=== PATIENT | male | born 1965 | race Caucasian/White ===

== ENCOUNTER 2022-08-17 04:08 | Inpatient (IN) | payer BC, SELFPAY ==
[2022-08-17] VITALS (21 sets, daily range): BP systolic 97–111; BP diastolic 71–79; PULSE 65–92; RESP 12–20; TEMP 36.7–38.4; O2SAT 95–100; BMI 25.5
--- NOTE | ~2022-08-17 | XR_ITS ---
EXAMINATION: XR chest 1V portable DATE: 08/17/2022 04:30 INDICATION: Chest pain. TECHNIQUE: A single frontal view of the chest was obtained. COMPARISON: None. FINDINGS: The chest demonstrates clear lungs without pneumonia, pleural effusion, or pneumothorax. Th e heart size is normal. IMPRESSION: 1. No acute cardiopulmonary disease. Reviewed, dictated and finalized at location A.
--- NOTE | ~2022-08-17 | US_ITS ---
US abdomen limited INDICATION: Elevated liver function tests PROCEDURE: Realtime right upper abdominal ultrasound. COMPARISON: No prior studies for comparison. FINDINGS: The pancreas is normal without focal mass or pancreatic ductal dilation. Liver echotexture is normal without focal mass or intrahepatic biliary dilatation. There is normal directional flow i n the portal vein. Gallbladder wall is thickened measuring 6 mm with trace pericholecystic fluid and gallstone at the ga llbladder neck. Common bile duct measures 4 mm. IMPRESSION: 1: Cholelithiasis at the gallbladder neck with gallbladder wall thickening and trace pericholecystic fluid. Findings suspicious for acute cholecystitis. Correlate clinically. Reviewed, dictated and finalized at location A. IMPRESSION: 1: Cholelithiasis at the gallbladder neck with gallbladder wall thickening and trace pericholecystic fluid. Findings suspicious for acute cholecystitis. Corre late clinically.
--- NOTE | ~2022-08-17 | US_ITS ---
US renal BI 08/18/2022 11:19 Procedure: Realtime transabdominal ultrasound of the kidneys and bladder. Indication: UTI. History of renal stones. Comparison: No prior studies for comparison. Findings: Renal echotexture is within normal limits. There is mild right hydronephrosis. There appear s to be juxtaposition of the kidneys centrally, possibly horseshoe kidney. No stones identified. No f ocal masses are identified.. The right kidney measures 13.7 cm and left kidney measures 13.1 cm. Kashif dder within normal limits. Impression: 1: Mild right hydronephrosis. Possible horseshoe kidney. Reviewed, dictated and finalized at location A. Impression: 1: Mild right hydronephrosis. Possible horseshoe kidney.
--- NOTE | 2022-08-17 04:12 | ECG_ITS ---
Measurements Intervals [place] Rate: 68 P: 68 UT: 187 QRS: 47 QRSD: 98 T: 38 QT: 391 QTc: 418 Interpretive Statements SINUS RHYTHM ST ELEVATION IN INFERIOR LEADS- CONSIDER ACUTE INJURY ST ELEVATION IN LATERAL LEADS- CONSIDER ACUTE INJURY ABNORMAL ECG NO PREVIOUS ECG AVAILABLE FOR COMPARISON Electronically Signed On 08-17-2022 6:38:26 CDT by Jordan Ervin D.O.
[2022-08-17] MEDS: TICAGRELOR 90 MG TABLET 180 MG PO (04:20)
--- NOTE | 2022-08-17 04:20 | ED.CHESTPAIN ---
HPI - Chest Pain General Chief Complaint: Chest Pain Stated Complaint: STEMI cp radiating to left arm Source: RN notes reviewed History of Present Illness HPI narrative: Patient presents emergency department from home via EMS for code STEMI. Patient began have chest pain approximately 11 PM last night pain is located in left side of his chest down his left arm described as a pressure patient states he did become sweaty with it denies any fevers or chills shortness of breath abdominal pain nausea or vomiting. States no previous cardiac history does have a history of hypertension and high triglycerides. Patient states he does have a history of having a prostate biopsy done approximately 1 year ago he became bradycardic following that follow-up with cardiology and had an echo showing a abnormality with one of his valves he states he is currently on Bactrim for UTI patient was given aspirin 324 by EMS in route Related Data Allergies Allergy/AdvReac Type Severity Reaction Status Date / Time clindamycin [From Cleocin] Allergy Other Verified 08/17/22 04:19 Penicillins Allergy Other Verified 08/17/22 04:19 Review of Systems Review of Systems: Gen.: Denies fevers or chills ENT: Denies congestion Respiratory: Denies shortness of breath or cough CV: See HPI GI: Denies abdominal pain nausea, emesis or diarrhea Musculoskeletal: Denies back pain or muscle pain Neuro: Denies numbness, tingling, weakness or focal weakness Skin: Denies rash Except as documented, all other systems reviewed and negative [facility] Past Medical History Medical History (Updated 08/17/22 @ 04:29 by Jose F Hernandez DO) Hypercholesterolemia Hypertension Social History Social History (Updated 08/17/22 @ 04:22 by Jose F Hernandez DO) Smoking status: Never smoker Exam Narrative: APPEARANCE: Laying in bed diaphoretic EYES: EOMI HEENT: Normocephalic, atraumatic, OMM RESPIRATORY: No respiratory distress Clear to auscultation bilaterally with no rhonchi wheezing or rales. CARDIOVASCULAR: Regular rate and rhythm without murmurs rubs or gallops. ABDOMINAL: Soft, nontender, nondistended, no rebound or guarding MUSCULOSKELETAl: Moves all extremities. No clubbing, cyanosis or edema. NEURO: Awake and alert. Following commands, speech normal, no focal deficits SKIN:: Warm, dry. No rashes lesions or abrasions PSYCHIATRIC: Normal affect/mood, Course Course Emergency Course: Code STEMI activated by EMS in the field Discussed with Dr. Osborn request patient be given heparin and Brilinta Discussed with patient and diagnosis of STEMI and need for cardiac Postal Delivery Officer all questions answered patient in agreement Vital Signs Vital signs: Vital Signs Temperature 98.0 F 08/17/22 04:07 Pulse Rate 74 08/17/22 04:07 Respiratory Rate 16 08/17/22 04:07 Pulse Oximetry 99 08/17/22 04:07 Oxygen Delivery Room Air 08/17/22 04:07 Temperature 98.0 F 08/17/22 04:07 Pulse Rate 65 08/17/22 04:42 Respiratory Rate 15 08/17/22 04:42 Blood Pressure 97/77 L 08/17/22 04:42 Pulse Oximetry 100 08/17/22 04:42 Oxygen Delivery Room Air 08/17/22 04:07 MDM - Chest Pain Lab Data Result diagrams: 08/17/22 04:25 08/17/22 04:25 Labs: Lab Results 08/17/22 08/17/22 08/17/22 Range/Units 04:25 04:25 04:25 WBC Pending RBC Pending Hgb Pending Hct Pending MCV Pending MCH Pending MCHC Pending RDW Pending Plt Count Pending MPV Pending Immature Gran % (Auto) Pending Neut % (Auto) Pending Lymph % (Auto) Pending [place] % (Auto) Pending Eos % (Auto) Pending Baso % (Auto) Pending Lymph # (Auto) Pending [place] # (Auto) Pending Eos # (Auto) Pending Baso # (Auto) Pending Abs Immat Gran (auto) Pending Absolute Neuts (auto) Pending Absolute Nucleated RBC Pending Nucleated RBC % Pending PT Pending
[2022-08-17] MEDS: HEPARIN SODIUM 5,000 UNITS/ML VIAL 4000 UNITS IV PUSH (04:21)
[2022-08-17 04:31] LABS: Basophils Absolute Auto 0.1 K/mm3 (0.0-0.1); Basophils Percent Auto 0.4 % (0.2-1.2); Eosinophils Absolute Auto 0.1 K/mm3 (0-0.3); Eosinophils Percent Auto 0.5 % (0-4.4); Hematocrit 36.4 % (42.0-52.0); Hemoglobin 12.5 g/dL (14.0-18.0); Immature Granulocyte Absolute 0.26 K/mm3 (0.00-0.031); Immature Granulocyte Percent A 1.3 % (0-0.5); Lymphocytes Absolute Auto 1.54 K/mm3 (0.9-3.2); Lymphocytes Percent Auto 7.5 % (18.3-44.2); Mean Corpuscular HGB Conc 34.3 g/dl (32-36); Mean Corpuscular Hemoglobin 28.8 pg (26-34); Mean Corpuscular Volume 83.9 fl (80-100); Mean Platelet Volume 10.6 fl (7.4-10.4); Monocytes Absolute Auto 1.4 K/mm3 (0.1-0.6); Monocytes Percent Auto 6.8 % (2.6-8.5); Neutrophils Absolute Auto 17.3 K/mm3 (1.3-6.7); Neutrophils Percent Auto 83.5 % (45.5-73.1); Platelet Count Result 229 k/mm3 (150-375); Red Blood Count 4.34 M/mm3 (4.6-6.20); Red Cell Distribution Width 12.7 % (11.5-14.5); White Blood Count 20.7 K/mm3 (4.5-10.0)
--- NOTE | 2022-08-17 04:42 | PC.NURSE ---
0440 can labeler team arrives to transport patient to label coder.
[2022-08-17 04:48] LABS: INR 1.3; Prothrombin Time 15.5 Seconds (11.1-14.7)
[2022-08-17 04:49] LABS: Partial Thromboplastin Time 35.9 SECONDS (22.3-36.8)
[2022-08-17 04:50] LABS: Alanine Aminotransferase 63 U/L (6-50); Albumin Level 3.1 g/dL (3.5-5.1); Alkaline Phosphatase 93 U/L (38-126); Anion Gap 10 mmol/L (8-16); Aspartate Amino Transferase 54 U/L (17-59); Bilirubin,Total 0.6 mg/dL (0.2-1.3); Blood Urea Nitrogen 16 mg/dL (9-20); Calcium 7.5 mg/dL (8.4-10.2); Carbon Dioxide 20 mmol/L (22-30); Chloride 106 mmol/L (98-107); Cholesterol 101 mg/dL (0-200); Estimated CRCL calculation 76 ml/min; Estimated Glomerular Filt Rate > 60; Glucose 147 mg/dL (65-110); HDL Direct 24 mg/dL; Potassium 2.7 mmol/L (3.4-5.0); Sodium 136 mmol/L (137-145); Triglycerides 119 mg/dL (<150)
[2022-08-17 04:57] LABS: LDL Cholesterol Direct 34 mg/dL
--- NOTE | 2022-08-17 05:25 | PM.IMHP ---
H&P: HPI History of Present Illness Date/Time: 08/17/22 05:25 Chief Complaint: Chest pain Narrative: this is a 57-year-old man I am seeing quickly in the cardiac forestry farm laborer as he is being prepared for emergency angiography in the setting of ST-elevation RI. The patient reports no prior history known cardiac problems. He has been experiencing chest pain that began about 11:00 p.m. last night. This symptoms consist of a burning the center of the chest with radiation into the left arm and some diaphoresis. He was brought to the hospital by ambulance. EMS in the field declared STEMI because of inferior and lateral ST segment elevation. Reports a history of hypertension and hypercholesterolemia. He also reports being under a high amount of stress because of his job and illness in his father. Review of Systems Review of Systems: ROS unobtainable: Yes unobtainable due to medical condition PMFSH Past Medical History Medical History (Updated 08/17/22 @ 04:29 by Jose F Hernandez DO) Hypercholesterolemia Hypertension Social History Social History (Updated 08/17/22 @ 04:22 by Jose F Hernandez DO) Smoking status: Never smoker Meds Home Medications and Allergies Allergies Allergy/AdvReac Type Severity Reaction Status Date / Time clindamycin [From Cleocin] Allergy Other Verified 08/17/22 04:19 Penicillins Allergy Other Verified 08/17/22 04:19 Vital Signs Vital Signs - 24 hr 08/17/22 04:07 08/17/22 04:42 Temperature 36.7 C Pulse Rate 74 65 Respiratory Rate 16 15 Blood Pressure 97/77 L Pulse Oximetry 99 100 Oxygen Delivery Room Air Exam Const: General: comfortable and no acute distress Other: Well-developed well-nourished white male he is no longer experiencing any chest pain is be being prepared for emergency angiography. Appears to be comfort HENMT: Mouth: Yes moist mucous membranes Eyes: Sclera: sclerae normal Pupils: Equal, round and reactive pupils present Neck: Neck: supple and no JVD Resp: Effort & Inspection: normal respiratory effort Auscultation: clear to auscultation bilaterally Cardio: Rate: regular rate Rhythm: regular rhythm Other: no murmur no gallop GI: GI Palp: Yes Soft to palpation Auscultation: normal bowel sounds Skin: General skin exam: normal color Neuro: Other: alert and oriented x3 Extrem: General: normal to inspection H&P: Results Labs Labs: Short CBC 08/17/22 Range/Units 04:25 WBC 20.7 H (4.5-10.0) K/mm3 Hgb 12.5 L (14.0-18.0) g/dL Hct 36.4 L (42.0-52.0) % Plt Count 229 (150-375) k/mm3 BMP 08/17/22 04:25 Sodium 136 L Potassium 2.7 L* Chloride 106 Carbon Dioxide 20 L BUN 16 Creatinine 1.00 Glucose 147 H Calcium 7.5 L Cardiac Enzymes 08/17/22 Range/Units 04:25 Troponin I 4.230 H* (0.000-0.034) ng/mL Liver Function 08/17/22 Range/Units 04:25 Total Bilirubin 0.6 (0.2-1.3) mg/dL AST 54 (17-59) U/L ALT 63 H (6-50) U/L Alkaline Phosphatase 93 (38-126) U/L Albumin 3.1 L (3.5-5.1) g/dL Assessment and Plan Assessment and plan (1) ST elevation (STEMI) myocardial infarction: Code(s): I21.3 - ST elevation (STEMI) myocardial infarction of unspecified site Status: Acute Plan this is a 57-year-old man with history of hypertension and hyperlipidemia reports to be under a lot of stress lately. He was having significant chest pain starting about 11:00 p.m. last evening until a short time ago. ECG in the field interpreted acute inferior lateral current of injury. In this setting he is being brought to the cardiac forestry farm laborer emergently. Mook Osborn MD [facility]
--- NOTE | 2022-08-17 05:30 | WPDCARDPROC ---
Cardiac Cath Procedure Note Date of procedure:: 08/17/22 Performing physician:: Mook Osborn MD Indication:: ST-elevation NC Brief clinical history:: this is a 57-year-old man without previous cardiac history. He is hypertensive and dyslipidemic. He reports chest pain that began about 11:00 p.m. last evening. EMS in the field had an EKG which demonstrated inferior lateral ST elevation. Procedure Procedure performed:: Coronary angiography left ventriculography Angio-Seal to right femoral artery Sedation/Medication given:: fentanyl 50 mg Versed 2 mg Access site:: right femoral artery Estimated blood loss:: 25 cc Procedure note:: patient was brought to the cardiac senior cytogenetics laboratory director emergently where the right femoral triangle was prepared and draped in the usual fashion. Anesthesia was provided with 1% lidocaine infiltrated locally. Using the modified Seldinger technique 6 Palestinian sheath was placed into right femoral artery. After this I used a standard 5 Palestinian FL4 catheter to engage and inject the left coronary artery in multiple projections. Following this right coronary artery was engaged and injected using a standard 5 Palestinian JR4 catheter. The cineangiograms were reviewed. Lastly a 5 Palestinian angled pigtail catheter was used to document left-sided hemodynamics and to perform a left ventriculogram in the GARCIA projection. The femoral artery was studied with an angiogram through the sheath after this an Angio-Seal device was deployed with a good hemostatic result. There were no apparent procedural complications. He was taken to ICU for post cath recovery. Findings:: Hemodynamics: Central aortic pressure is 84 over 50 left ventricle 84/4 end-diastolic pressure 22. No gradient on pullback across the aortic valve. Left ventricle: The left ventricle is modestly enlarged. The inferior wall is akinetic the anterior wall contracts well the global ejection fraction is reduced at about 40%. Mitral valve is competent. The left main coronary artery is nicely patent the left anterior descending is a medium caliber artery extending down to and around the apex. The LAD and its branches appear to be smooth and angiographically free of disease. The circumflex is a large caliber vessel which is codominant to the posterior circulation. The circumflex its marginal branches and posterior branch appeared to be angiographically normal. Right coronary artery is small in caliber and codominant terminating in a small RPDA. The right coronary is also smooth and angiographically normal in appearance. Conclusion:: 1. codominant coronary circulation with no angiographic abnormalities 2. mild left ventricular enlargement with inferior akinesia and global ejection fraction of 40%. 3. Presumptive diagnosis is acute myocardial infarction mediated by vasospasm Mook Osborn MD [facility]
--- NOTE | 2022-08-17 05:44 | ECG_ITS ---
Measurements Intervals [place] Rate: 69 P: 69 ND: 193 QRS: 16 QRSD: 92 T: 38 QT: 386 QTc: 415 Interpretive Statements SINUS RHYTHM SUBTLE ST ELEVATION IN INF/LAT LEADS- CONSIDER ACUTE INJURY OR EARLY REPOLARIZATION ABORMALITY ABNORMAL ECG COMPARED TO ECG 08/17/2022 04:18:14 NO SIGNIFICANT CHANGES Electronically Signed On 08-17-2022 8:04:51 CDT by Jordan Ervin D.O.
--- NOTE | 2022-08-17 06:07 | PC.NURSE ---
This patient, Silvestre Garcia, was admitted to Intensive Care Unit-5 on 08/17/22 at 0535. Patient/family oriented to hospital policies and general routines including ID bracelet, bed and alarms, visiting hours, pain management, procedures, bathroom and other care routines, personal items, smoking policy, room service/diet, and visiting hours. Information on how to activate the Rapid Response Team has been discussed. Patient/Family are encouraged to report perceived risks to care and to ask questions if they do not understand what they are told or what they should do.
--- NOTE | 2022-08-17 06:08 | PC.NURSE ---
Dr. Osborn here to discuss cath with patient and . Patient currently pain free.
[2022-08-17] MEDS: POTASSIUM CHLORIDE INJ 40 MEQ in SODIUM CHLORIDE 0.9% IV 500 ML 130 MEQ IVPB (07:07)
[2022-08-17] MEDS: SODIUM CHLORIDE 0.9% IV 1,000 ML 125 ML IV CONT (07:07)
[2022-08-17] MEDS: ALPRAZolam (*CRX) 0.25 MG TABLET PO (08:46)
--- NOTE | 2022-08-17 09:42 | WPDCNINT ---
Assessment and Plan Assessment and plan (1) ST elevation (STEMI) myocardial infarction: Code(s): I21.3 - ST elevation (STEMI) myocardial infarction of unspecified site Status: Acute Assessment and Plan: Patient presented with chest pain, radiating to left arm, nausea, diaphoresis. EKG per EMS showed inferior and lateral ST elevations -patient was taken to director of cardiac cath lab, coronary angiogram showed clean coronaries, mild LV enlargement with inferior akinesia and global ejection fraction 40%. -he will be started on beta-edmond and losartan per Cardiology once his blood pressure stabilize. (patient was hypotensive in director of cardiac cath lab likely related to fentanyl and Versed been given for the procedure) -patient states that his systolic blood pressures have been hovering around 100 to 110s -patient stated that he had echocardiogram a year ago which showed some valvular dysfunction. Cardiology will look at the echo from the system which was done at [facility]. -continue to monitor in the ICU for today (2) Hypercholesterolemia: Code(s): E78.00 - Pure hypercholesterolemia, unspecified Status: Acute Assessment and Plan: Patient be started on statin (3) Hypertension: Code(s): I10 - Essential (primary) hypertension Status: Acute Assessment and Plan: Patient normally takes lisinopril/HCTZ at home -cardiology will be placing him on metoprolol and losartan once blood pressures allow (4) UTI (urinary tract infection): Code(s): N39.0 - Urinary tract infection, site not specified Status: Acute Assessment and Plan: Patient was being treated with Bactrim as outpatient -will continue Bactrim -obtain UA and culture (5) Kidney stone: Code(s): N20.0 - Calculus of kidney Status: Acute Assessment and Plan: Patient states that he had history of kidney stones, urology evaluated him a 1 year ago and was able to retrieve 2 out of the 3 stones. Plan Nutrition: Heart healthy diet Code Status: Full code Critical Care Time Spent: 43 minute Due to a high probability of clinically significant, life threatening deterioration, the patient required my highest level of preparedness to intervene emergently and I personally spent this critical care time directly and personally managing the patient. This critical care time included obtaining a history; examining the patient; pulse oximetry; ordering and review of studies; arranging urgent treatment with development of a management plan; evaluation of patient's response to treatment; frequent reassessment; and discussions with other providers. It was exclusive of separately billable procedures and treating other patients and teaching time. Please see Assessment and Plan section and the rest of the note for further information on patient assessment and treatment Survey Project Manager Consult Note Consult date: 08/17/22 Reason for consult: Since chest pain, STEMI started was coronary angiogram with clean coronaries, EF of 40%, LVEDP of 22 HPI: Silvestre Garcia is a 57 year old male with past medical history of hypertension, horse shoe kidney, kidney stones, UTI, hyperlipidemia presented the ED with complains of chest pain radiating to the left arm with pressure-like sensation. He also complained of Nausea, diaphoresis. He does have a history of prostate biopsy done about a year ago and had become bradycardic following the procedure, an echocardiogram did show some abnormality with one of his valves. He is currently taking Bactrim for UTI. Once EMS arrived ER was activated for a STEMI, EKG showed did show ST elevations in the inferior and lateral leads. Patient was given aspirin 324 mg by EMS. Patient was taken to the cardiac catheterization urgently. Angiographic likely did not have any lesions in his coronary arteries, mild LV enlargement with inferior akinesia and global ejection fraction of 40%. The cardiology thought it is probably acute myocardial infarct
[2022-08-17] MEDS: POTASSIUM CHLORIDE 20 MEQ PACKET (FOR LIQUID) 40 MEQ PO (10:57)
[2022-08-17] MEDS: SULFAMETHOXAZOLE/TRIMETHOPRIM 800/160 MG DS TABLET 1 TAB PO ×2 (10:57→20:19)
[2022-08-17 11:25] LABS: Appearance Urine Clear (Clear); Bilirubin Urine 1+ (Negative); Blood Urine Negative (Negative); Color Urine Yellow (Yellow); Glucose Urine UA Negative (Negative); Ketones Urine 2+ mg/dL (Negative); Leukocyte Esterase Ur Negative LEU/UL (NEGATIVE); Nitrate Urine Negative (Negative); Protein Urine 1+ mg/dL (Negative); Specific Grav Ur 1.015 (1.001-1.035)
[2022-08-17] MEDS: METOPROLOL SUCCINATE EXT REL 25 MG TABCR PO (11:27)
[2022-08-17] MEDS: LOSARTAN POTASSIUM 25 MG TABLET PO (11:27)
[2022-08-17 11:33] LABS: Mucus Urine Rare /lpf
[2022-08-17 11:39] LABS: Add Urine Microscopic? YES
[2022-08-17] MEDS: NITROGLYCERIN/D5W 200 MCG/ML 50 MG/250 ML BTL IV CONT (13:55)
[2022-08-17] MEDS: MORPHINE SULFATE (*CRX) 2 MG/ML INJ IV PUSH (14:04)
[2022-08-17] MEDS: ACETAMINOPHEN 325 MG TABLET 650 MG PO (22:40)
[2022-08-18] VITALS (12 sets, daily range): BP systolic 96–122; BP diastolic 62–91; PULSE 80–94; RESP 14–27; TEMP 37.1–38.4; O2SAT 95–99
--- NOTE | 2022-08-18 | ECHO_ITS ---
Patient Info Name: Silvestre Garcia Age: 57 years : 1965 Gender: Male Ht: 71 in Wt: 184 lbs BSA: 2.05 m2 HR: 92 bpm BP: 116 / 81 mmHg Heart Rhythm: Sinus Rhythm Technical Quality: Fair Exam Date: 08/18/2022 12:40 PM Exam Location: [facility] Pulmonary Patient Status: Inpatient Admit Date: 08/17/2022 Staff Ordering Physician: Dylan Alberto MD (cora/pinky) Stopboard Assembler: Floridalma Haile RDCS Attending Provider: Mook Osborn MD Referring Physician: Remy COPELAND; Exam Type: CA echo doppler color flow Study Info Indications - NSTEMI Complete two-dimensional, color flow and Doppler transthoracic echocardiogram is performed. Summary 1. Complete two-dimensional, color flow and Doppler transthoracic echocardiogram is performed. 2. Left ventricular chamber dimension is normal. 3. Left ventricular systolic function is mildly reduced, estimated at 45-50%. 4. The posterior and lateral segments are hypodynamic. 5. Right ventricular chamber dimension is normal. 6. Left atrial chamber dimension is mildly enlarged. 7. Trivial amount of MR. Left Ventricle Left ventricular chamber dimension is normal. Left ventricular systolic function is mildly reduced, estimated at 45-50%. The left ventricular diastolic function is grade I diastolic dysfunction. The posterior and lateral segments are hypodynamic. Right Ventricle Right ventricular chamber dimension is normal. Left Atria Left atrial chamber dimension is mildly enlarged. Right Atria Right atrial chamber dimension is normal. Aortic Valve The aortic valve is normal. Pulmonic Valve The pulmonic valve is normal. Mitral Valve The mitral valve has normal leaflets. There is trace mitral valve regurgitation. Tricuspid Valve The tricuspid valve leaflets are normal. Pericardium/Pleural The pericardium appears normal. Aorta The aortic root size at the sinus of Valsalva is normal. Left Ventricular Outflow Tract Name Value Normal LVOT 2D LVOT Diameter 2.0 cm LVOT Doppler LVOT Peak Gradient 6 mmHg LVOT Mean Gradient 2 mmHg LVOT VTI 18 cm LVOT VTI/AV VTI Ratio 0.7 LVOT Stroke Volume 53 ml LVOT CO 4.5 l/min LVOT CI 2.2 l/min/m2 Pulmonic Valve Name Value Normal RVOT Doppler RVOT Peak Gradient 2 mmHg PV Doppler PV Peak Gradient 5 mmHg Mitral Valve Name Value Normal
[2022-08-18 04:31] LABS: Basophils Percent Auto 0.3 % (0.2-1.2); Eosinophils Percent Auto 0.3 % (0-4.4); Hematocrit 38.1 % (42.0-52.0); Hemoglobin 12.5 g/dL (14.0-18.0); Immature Granulocyte Absolute 0.09 K/mm3 (0.00-0.031); Immature Granulocyte Percent A 0.7 % (0-0.5); Lymphocytes Absolute Auto 1.05 K/mm3 (0.9-3.2); Lymphocytes Percent Auto 8.6 % (18.3-44.2); Mean Corpuscular HGB Conc 32.8 g/dl (32-36); Mean Corpuscular Hemoglobin 28.2 pg (26-34); Mean Platelet Volume 10.6 fl (7.4-10.4); Monocytes Absolute Auto 0.8 K/mm3 (0.1-0.6); Monocytes Percent Auto 6.8 % (2.6-8.5); Neutrophils Absolute Auto 10.1 K/mm3 (1.3-6.7); Neutrophils Percent Auto 83.3 % (45.5-73.1); Platelet Count Result 204 k/mm3 (150-375); Red Blood Count 4.43 M/mm3 (4.6-6.20); Red Cell Distribution Width 13.2 % (11.5-14.5); White Blood Count 12.2 K/mm3 (4.5-10.0)
[2022-08-18 04:41] LABS: Alanine Aminotransferase 154 U/L (6-50); Albumin Level 3.4 g/dL (3.5-5.1); Alkaline Phosphatase 117 U/L (38-126); Anion Gap 8 mmol/L (8-16); Aspartate Amino Transferase 352 U/L (17-59); Bilirubin,Total 0.5 mg/dL (0.2-1.3); Blood Urea Nitrogen 16 mg/dL (9-20); Calcium 8.4 mg/dL (8.4-10.2); Carbon Dioxide 23 mmol/L (22-30); Chloride 106 mmol/L (98-107); Estimated CRCL calculation 69 ml/min; Estimated Glomerular Filt Rate > 60; Glucose 124 mg/dL (65-110); Phosphorus 3.1 mg/dL (2.5-4.5); Potassium 4.1 mmol/L (3.4-5.0); Sodium 137 mmol/L (137-145)
[2022-08-18 07:58] LABS: Hepatitis B Surface Antigen Negative (Negative)
[2022-08-18 08:03] LABS: HAV RESULT Negative (Negative); Hepatitis B Core IgM Result Negative (Negative)
[2022-08-18 08:15] LABS: Hepatitis C Virus Antibody Negative (Negative)
--- NOTE | 2022-08-18 08:18 | WPDINTPN ---
Progress Note: A&P Assessment and Plan (1) ST elevation (STEMI) myocardial infarction: Code(s): I21.3 - ST elevation (STEMI) myocardial infarction of unspecified site Status: Acute Assessment and Plan: Patient presented with chest pain, radiating to left arm, nausea, diaphoresis. 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 -will continue losartan, metoprolol, spironolactone per cardiology -patient states that his systolic blood pressures have been around 100 to 110s at home -patient stated that he had echocardiogram a year ago which showed some valvular dysfunction. Cardiology will look at the echo from the system which was done at [facility]. -08/17 afternoon patient had an episode of chest pain, was started on nitroglycerin infusion and given morphine with resolution of chest pain (2) Hypertension: Code(s): I10 - Essential (primary) hypertension Status: Acute Assessment and Plan: Patient normally takes lisinopril/HCTZ at home -cardiology placed patient on metoprolol, losartan, spironolactone (3) UTI (urinary tract infection): Code(s): N39.0 - Urinary tract infection, site not specified Status: Acute Assessment and Plan: Patient was being treated with Bactrim as outpatient -will continue Bactrim -obtain UA and culture (4) Kidney stone: Code(s): N20.0 - Calculus of kidney Status: Acute Assessment and Plan: Patient had some urinary retention on 08/17, Sabillon catheter was inserted, with good urine output -Will obtain renal ultrasound to evaluate for history of kidney stones -may consult Urology after renal ultrasound results -creatinine is within normal limits (5) Elevated LFTs: Code(s): R79.89 - Other specified abnormal findings of blood chemistry Status: Acute Assessment and Plan: Elevated LFTs could be multifactorial secondary to coronary spasms, decreased perfusion, hypotension, Bactrim can also cause increase LFTs -will obtain right upper quadrant ultrasound and hepatitis panel -will hold Bactrim for now Plan Nutrition: Heart healthy diet Code Status: Full code Critical Care Time Spent: 32 minute Due to a high probability of clinically significant, life threatening deterioration, the patient required my highest level of preparedness to intervene emergently and I personally spent this critical care time directly and personally managing the patient. This critical care time included obtaining a history; examining the patient; pulse oximetry; ordering and review of studies; arranging urgent treatment with development of a management plan; evaluation of patient's response to treatment; frequent reassessment; and discussions with other providers. It was exclusive of separately billable procedures and treating other patients and teaching time. Please see Assessment and Plan section and the rest of the note for further information on patient assessment and treatment Subjective Date/time seen: 08/18/22 08:18 Interval history: Reason for consult: chest pain, STEMI started was coronary angiogram with clean coronaries, EF of 40%, LVEDP of 22 08/18/2022: Patient seen and examined the ICU, is awake, alert. Off nitroglycerin infusion since last night. Patient denies any chest pain, shortness of breath, diaphoresis, nausea, vomiting, diarrhea. Patient states he feels much better. He was unable to urinate yesterday, Sabillon catheter was inserted and patient had a good amount of urine output. Systolic blood pressures this morning in the 90s, most likely because he is sleeping. Urine output has been adequate, patient is afebrile Review of Systems Review of Systems: All systems reviewed & are unremarkable except as noted in HPI and below Exam Narrative: General: Very pleasant p
--- NOTE | 2022-08-18 10:50 | PM.PNCARD ---
Progress Note: A&P Assessment and Plan (1) Hypertension: Code(s): I10 - Essential (primary) hypertension Status: Acute (2) Hypercholesterolemia: Code(s): E78.00 - Pure hypercholesterolemia, unspecified Status: Acute (3) Elevated LFTs: Code(s): R79.89 - Other specified abnormal findings of blood chemistry Status: Acute (4) ST elevation (STEMI) myocardial infarction: Code(s): I21.3 - ST elevation (STEMI) myocardial infarction of unspecified site Status: Acute Plan Patient underwent cardiac cath on 08/17/2022 which showed codominant coronary circulation with no angiographic abnormalities, mild left ventricular enlargement with inferior? akinesia and global ejection fraction of 40%;?presumptive diagnosis is?acute myocardial infarction mediated by vasospasm. -Recommend ASA 81mg -Elevated LFTs possibly due to hypotension noted on arrival. RUQ US pending. If improvement in LFTs, would consider restarting statin. -TTE ordered and pending. Will follow up on results. -Continue with Losartan, Metoprolol, and Aldactone for now. Can uptitrate Metoprolol as needed for anti-anginal relief, could also consider adding calcium channel edmond for coronary vasospasm. Subjective Date/time seen: 08/18/22 10:50 Interval history: No acute events overnight. Patient is without chest pain. No issues with right femoral access site. Review of Systems Constitutional: Constitutional: Denies body ache(s), Denies chills and Denies night sweats Cardiovascular: Cardiovascular: Denies chest pain, Denies leg edema, Denies lightheadedness and Denies palpitations Respiratory: Respiratory: Denies dyspnea Gastrointestinal: Gastrointestinal: Denies abdominal pain, Denies nausea and Denies vomiting Neurologic: Reports system reviewed and no additional complaints, except as documented Psychiatric: Psychiatric: Reports no additional psychiatric complaints Hematologic/Lymphatic: Hematologic/Lymphatic: Denies easy bleeding and Denies easy bruising Exam Const: General: comfortable and no acute distress Eyes: General: appearance normal, both eyes and all related structures Neck: Neck: no JVD Resp: Effort & Inspection: normal respiratory effort Auscultation: clear to auscultation bilaterally Cardio: Rate: regular rate Rhythm: regular rhythm Heart sounds: no murmurs Skin: General skin exam: normal color Neuro: Speech: normal speech Psych: Mental Status: mental status grossly normal Objective Data Vital Signs Vital Signs: Vital Signs - 24 hr 08/17/22 11:27 08/17/22 11:58 08/17/22 13:55 Temperature Pulse Rate 72 73 68 Respiratory Rate 15 Blood Pressure 103/79 Pulse Oximetry 98 Oxygen Delivery Room Air 08/17/22 12:00 08/17/22 12:00 08/17/22 14:00 Temperature Pulse Rate 78 70 68 Respiratory Rate 18 Blood Pressure 111/72 Pulse Oximetry 100 Oxygen Delivery 08/17/22 14:00 08/17/22 16:00 08/17/22 16:00 Temperature Pulse Rate 68 73 88 Respiratory Rate 12 15 Blood Pressure 102/73 Pulse Oximetry 100 98 Oxygen Delivery Room Air 08/17/22 16:00 08/17/22 18:00 08/17/22 18:00 Temperature 37.7 C H Pulse Rate 88 90 92 Respiratory Rate 16 18 Blood Pressure 100/72 99/75 L Pulse Oximetry 100 97 Oxygen Delivery 08/17/22 20:00 08/17/22 20:00 08/17/22 20:00 Temperature 38.0 C H Pulse Rate 87 87 87 Respiratory Rate 18 16 Blood Pressure 106/77 Pulse Oximetry 99 98 Oxygen Delivery Room Air 08/17/22 22:00 08/17/22 22:00 08/17/22 22:40 Temperature 38.4 C H 38.4 C H Pulse Rate 85 87 Respiratory Rate 16 Blood Pressure 108/78 Pulse Oximetry 97 Oxygen Delivery 08/18/22 00:00 08/18/22 00:00 08/18/22 00:00 Temperature 38.4 C H Pulse Rate 85 85 85 Respiratory Rate 16 16 Blood Pressure 105/79 Pulse Oximetry 96 96 Oxygen Delivery Room Air 08/18/22 02:00 08/18/22 02:00 08/18/22 04:00 [facility]
[2022-08-18] MEDS: ACETAMINOPHEN 325 MG TABLET 650 MG PO (13:21)
--- NOTE | 2022-08-18 14:43 | PM.CNGS ---
Assessment and Plan Assessment and plan (1) Cholelithiasis with cholecystitis: Code(s): K80.10 - Calculus of gallbladder with chronic cholecystitis without obstruction Status: Acute Assessment and Plan: US reviewed and suggestive of acute calculous cholecystitis. AST/ALT went up today. He is currently asymptomatic without any abdominal pain or chest pain. His abdominal exam is benign and he is tolerating his diet. Given the recent cardiac issues, he would be at high risk for perioperative complications for a cholecystectomy at this time. We would recommend trying to treat this conservatively for now with low fat diet and lifestyle modifications and continue to monitor. It would be ideal to avoid surgery for at least 3 months to reduce his perioperative risks. If he started having more symptoms or his LFTs were trending up, then we could get a HIDA scan to further evaluate for cystic duct patency and consider percutaneous cholecystostomy tube placement if needed. Will repeat labs tomorrow and follow with serial abdominal exams. (2) Elevated LFTs: Code(s): R79.89 - Other specified abnormal findings of blood chemistry Status: Acute Assessment and Plan: AST and ALT elevated. Could be multifactorial related to cholecystitis, perfusion, hypotension, medications. Monitor labs. See plan above. (3) ST elevation (STEMI) myocardial infarction: Code(s): I21.3 - ST elevation (STEMI) myocardial infarction of unspecified site Status: Acute Assessment and Plan: Patient presented as a STEMI with chest pain, radiating to the left arm. S/p cardiac cath with coronary angiogram negative but mild LV enlargement with inferior akinesia and global EF 40%. Had recurrent chest pain yesterday afternoon and was on a nitroglycerin infusion and given Morphine. No longer having any chest pain or pressure today. Nitro infusion stopped. (4) BPH (benign prostatic hyperplasia): Code(s): N40.0 - Benign prostatic hyperplasia without lower urinary tract symptoms Status: Acute (5) Hypertension: Code(s): I10 - Essential (primary) hypertension Status: Acute (6) UTI (urinary tract infection): Code(s): N39.0 - Urinary tract infection, site not specified Status: Acute Assessment and Plan: UTI as outpatient treated with Bactrim. Outpatient urine culture from 08/15 showed growth of E.coli. Bactrim held due to elevated LFTs, now on Rocephin IV. Renal US noted, Urology consulted. Fevers could be related to UTI or cholecystitis. IV Rocephin should also provide adequate coverage for his gallbladder if this is the cause of his fevers. Plan I have discussed the patient's case and plan of care with Dr. Han. Thank you for allowing us to see the patient in consultation and we will continue to follow along with you. History of Present Illness Consult details Consult date: 08/18/22 Reason for consult: other (Possible acute cholecystitis) Requesting physician: Concepción Holder MD Narrative: This is a 57-year-old man with a history of hypertension and BPH, who presented to the ER via EMS for chest pain. He reports 3 days ago noticing dysuria and had a fever with a temperature of a 102? F. He called his urologist who ordered a urine culture and started him on Bactrim. He denies having any abdominal pain, nausea, or other symptoms at that time. Thursday, he took it easy and stayed around the house. He reports a sudden onset of chest pain around 11:00 p.m. that felt like a sharp pain. He then noticed radiating pain down his left arm. He additionally had numbness of his hands. Therefore, he called EMS and his EKG showed ST elevation. He was a code STEMI in the ER yesterday in the [facility]. He was urgently taken to the [facility] [place] [facility]. Troponins were elevated with a peak of 27. His cardiac catheterization showed no angiographic abnormalities, but mild left ventricular enlargemen
--- NOTE | 2022-08-18 18:42 | WPDURCON ---
Assessment and Plan Assessment and plan (1) BPH (benign prostatic hyperplasia): Code(s): N40.0 - Benign prostatic hyperplasia without lower urinary tract symptoms Status: Acute Assessment and Plan: Restart Tamsulosin, add Finasteride. Plan to do a voiding trial prior to discharge. Keep salas in for I&O purposes at this time. Follow up with urologist after discharge. If unable to urinate after voiding trial, replace salas. 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 No need for intervention d/t a normal creatinine and no flank pain. No further evaluation at this time. Urology Consult Note HPI Date Seen: 08/18/22 Time Seen: 16:00 Requesting Physician: Mook Osborn MD Primary Care Provider: Denton Grande, M.D. Consult Narrative Reason for consult: BPH/Retention Horsehoe Kidney Narrative: Silvestre Garcia is a 57 year old male who was admitted to the ICU after EMS was called at his home for chest pain. He was found to have had a STEMI and then suddenly developed urinary retention. He sees urology at [facility] and has been on Tamsulosin for approximately one year for symptoms of BPH. He has a history of an elevated PSA as well as a prostate biopsy approximately 8 months ago. His biopsy was negative for cancer and his PSA's have trended down to <4 as of 01/07/22. He has been off of Tamsulosin for 2 days while hospitalized but states when he started it last year he had a salas for retention at that time as well. At home, when taking his tamsulosin regularly, he denies difficulty with urination, frequency, urgency or a slow urine stream. He also denies hematuria or symptoms of a UTI recently. His creatinine was 1.10, WBC is 12.2 and UA is suspicious of a UTI, however urine cultures are pending. His HANNAH reveals mild right hydronephrosis and a possible horseshoe shaped kidney. He had a salas catheter placed yesterday. He is currently febrile and tachypneic. Review of Systems Cardiovascular: Cardiovascular: Denies chest pain Respiratory: Respiratory: Denies dyspnea Gastrointestinal: Gastrointestinal: Denies nausea and Denies vomiting Genitourinary: Genitourinary: Denies hematuria, Denies dysuria, Denies flank pain, Denies urinary frequency, Denies urinary hesitancy and Denies urinary urgency [facility] Past Medical History Medical History BPH (benign prostatic hyperplasia) Hypercholesterolemia Hypertension Kidney stone Surgical History Surgical History History of prostate biopsy History of tonsillectomy Family History Family History Mother Cerebrovascular accident Father Dementia Grandparent Gallbladder disease Social History Social History Smoking status: Never smoker Second hand tobacco smoke exposure: No Alcohol intake: current Drinks per week: 1 Substance use: never Living arrangements: with family Spiritual care concerns: No Meds Home Medications and Allergies Home Medications Medication Instructions Recorded Confirmed Type Adult Aspirin EC Low Strength 81 mg PO DAILY 08/17/22 08/17/22 History docosahexaenoic acid (dha)-epa 1 cap PO DAILY 08/17/22 08/17/22 History capsule lisinopril 20 1 tablet PO DAILY 08/17/22 08/17/22 History mg-hydrochlorothiazide 12.5 mg tablet pravastatin 10 mg tablet 10 mg PO DAILY 08/17/22 08/17/22 History sildenafil 100 mg tablet 100 mg PO PRN erectile dysfunction 08/17/22 08/17/22 History sulfamethoxazole 800 1 tablet PO BID 08/17/22 08/17/22 History mg-trimethoprim 160 mg tablet tamsulosin 0.4 mg c
[2022-08-19 04:00] VITALS: PULSE 76
[2022-08-19 04:32] LABS: Hematocrit 39.5 % (42.0-52.0); Hemoglobin 12.9 g/dL (14.0-18.0); Mean Corpuscular HGB Conc 32.7 g/dl (32-36); Mean Corpuscular Hemoglobin 28.4 pg (26-34); Mean Corpuscular Volume 86.8 fl (80-100); Mean Platelet Volume 10.2 fl (7.4-10.4); Platelet Count Result 219 k/mm3 (150-375); Red Blood Count 4.55 M/mm3 (4.6-6.20); Red Cell Distribution Width 13.2 % (11.5-14.5); White Blood Count 7.2 K/mm3 (4.5-10.0)
[2022-08-19 04:55] LABS: Alanine Aminotransferase 218 U/L (6-50); Albumin Level 3.6 g/dL (3.5-5.1); Alkaline Phosphatase 141 U/L (38-126); Anion Gap 9 mmol/L (8-16); Aspartate Amino Transferase 194 U/L (17-59); Bilirubin,Total 0.5 mg/dL (0.2-1.3); Blood Urea Nitrogen 16 mg/dL (9-20); Calcium 8.6 mg/dL (8.4-10.2); Carbon Dioxide 25 mmol/L (22-30); Chloride 103 mmol/L (98-107); Estimated CRCL calculation 69 ml/min; Estimated Glomerular Filt Rate > 60; Glucose 118 mg/dL (65-110); Sodium 137 mmol/L (137-145)
[2022-08-19 08:00] VITALS: BP 114/73; PULSE 80; PULSE 84; RESP 21; TEMP 37.9; O2SAT 100
--- NOTE | 2022-08-19 08:14 | PC.NURSE ---
[facility] flyer was given to patient.
--- NOTE | 2022-08-19 09:07 | PM.PNGS ---
Progress Note: A&P Assessment and Plan (1) Cholelithiasis with cholecystitis: Code(s): K80.10 - Calculus of gallbladder with chronic cholecystitis without obstruction Status: Acute Assessment and Plan: Still no symptoms that would suggest he has ongoing cholecystitis. Would recommend low fat diet for now. If WBC or LFT's going up, could get HIDA scan. He can follow up as outpatient to discuss removing gallbladder once cleared by cardiology. (2) Elevated LFTs: Code(s): R79.89 - Other specified abnormal findings of blood chemistry Status: Acute (3) ST elevation (STEMI) myocardial infarction: Code(s): I21.3 - ST elevation (STEMI) myocardial infarction of unspecified site Status: Acute Subjective Subjective Date/Time Seen: 08/19/22 09:07 Interval history: No abdominal pain. Had slight fever overnight. No other complaints. No chest pain. Exam GI: Inspection: non-distended GI Palp: Yes Soft to palpation, No Tenderness to palpation present (GI) and No Guarding due to palpation present (GI) Objective Data Vital Signs Vital Signs: Vital Signs - 24 hr 08/18/22 09:36 08/18/22 10:00 08/18/22 12:33 Temperature 37.6 C H Pulse Rate 91 90 91 Respiratory Rate 27 H Blood Pressure 116/81 Pulse Oximetry Oxygen Delivery 08/18/22 12:00 08/18/22 16:00 08/18/22 16:00 Temperature 37.1 C Pulse Rate 93 80 80 Respiratory Rate 14 Blood Pressure 111/84 Pulse Oximetry 95 Oxygen Delivery 08/18/22 20:00 08/18/22 20:00 08/18/22 23:38 Temperature Pulse Rate 84 85 85 Respiratory Rate 16 Blood Pressure Pulse Oximetry 98 Oxygen Delivery Room Air 08/18/22 23:44 08/19/22 04:00 Temperature 37.7 C H Pulse Rate 85 76 Respiratory Rate 14 Blood Pressure 121/82 Pulse Oximetry 98 Oxygen Delivery Intake/Output Intake/Output: Intake & Output 08/16/22 08/17/22 08/18/22 08/19/22 23:59 23:59 23:59 23:59 Intake Total 520 3715 900 Output Total 200 3250 1600 Balance 320 465 -700 Meds/Results Medications: Active Medications Generic Name Dose Route Start Last Admin Trade Name Freq PRN Reason Stop Dose Admin Acetaminophen 650 mg 08/17/22 22:25 08/18/22 13:21 Acetaminophen 325 Mg Tablet PO 650 mg Q6H PRN Administration Mild Pain (1-3) or Fever Alprazolam 0.25 mg 08/17/22 07:40 08/17/22 08:46 Alprazolam (*Crx) 0.25 Mg Tablet PO 0.25 mg ONCE PRN Administration Anxiety Aspirin 81 mg 08/19/22 09:00 Aspirin 81 Mg [facility] [place] Clopidogrel Bisulfate 75 mg 08/19/22 09:00 Clopidogrel Bisulfate 75 Mg [facility] [place] Finasteride 5 mg 08/19/22 09:00 Finasteride 5 Mg [facility] [place] Ceftriaxone Sodium/Dextrose 1 gm in 50 mls @ 100 mls/hr 08/18/22 10:35 08/18/22 13:16 Rocephin 1 Gm/D5w 50 Ml IVPB 08/20/22 09:29 [facility] [place] [facility] Losartan Potassium 25 mg 08/17/22 10:35 08/18/22 09:36 Losartan Potassium 25 Mg Tablet PO 25 mg DAILY MARINO Administration Metoprolol Succinate 25 mg 08/17/22 10:35 08/18/22 09:36 Metoprolol Succinate Ext Rel 25 Mg Tabcr PO 25 mg QAM [facility] Administration Perflutren Lipid Microsphere 0 ml 08/18/22 10:16 Perflutren Lipid Microspheres 1.5 Ml Vial Diluted To 10 Ml Total Volume IV PUSH 08/20/22 10:16 ONCE PRN adequate visualization Protocol Polyethylene Glycol 17 gm 08/18/22 10:07 Polyethylene Glycol 3350 17 Gm Powd.Pack PO QAM PRN Constipation Tamsulosin HCl 0.4 mg 08/19/22 09:00 Tamsulosin Hcl 0.4 Mg Capsule PO QAM [facility] Radiology Results: ITS Impressions Chest X-Ray 08/17/22 07:40 IMPRESSION: 1. No acute cardiopulmonary disease. Abdomen Ultrasound 08/18/22 11:21 IMPRESSION: 1: Cholelithiasis at the gallbladder neck with gallbladder wall thickening and trace pericholecystic fluid. Findings suspicious for acute cholecystitis. Co
[2022-08-19 09:15] VITALS: PULSE 91
[2022-08-19] MEDS: METOPROLOL SUCCINATE EXT REL 25 MG TABCR PO (09:15)
[2022-08-19] MEDS: LOSARTAN POTASSIUM 25 MG TABLET PO (09:15)
[2022-08-19] MEDS: FINASTERIDE 5 MG TABLET PO (09:43)
[2022-08-19] MEDS: TAMSULOSIN HCL 0.4 MG CAPSULE PO (09:44)
[2022-08-19 12:00] VITALS: PULSE 83
--- NOTE | 2022-08-19 13:51 | PM.PNCARD ---
Progress Note: A&P Assessment and Plan (1) ST elevation (STEMI) myocardial infarction: Code(s): I21.3 - ST elevation (STEMI) myocardial infarction of unspecified site Status: Acute (2) Hypertension: Code(s): I10 - Essential (primary) hypertension Status: Acute (3) Hypercholesterolemia: Code(s): E78.00 - Pure hypercholesterolemia, unspecified Status: Acute (4) Elevated LFTs: Code(s): R79.89 - Other specified abnormal findings of blood chemistry Status: Acute (5) BPH (benign prostatic hyperplasia): Code(s): N40.0 - Benign prostatic hyperplasia without lower urinary tract symptoms Status: Acute (6) Cholelithiasis with cholecystitis: Code(s): K80.10 - Calculus of gallbladder with chronic cholecystitis without obstruction Status: Acute Plan 1. Appreciate Urology recommendations. Continue Tamsulosin and Finasteride upon discharge. Patient passed his voiding trial without any issues. 2. Appreciate General Surgery recommendations. Will have patient follow up with them as an outpatient. 3. For his acute coronary syndrome, will have patient on DAPT (ASA + Plavix) for 1 year as per guidelines. Continue beta edmond and ARB. Echo showed LVEF 45-50%, therefore, Aldactone not indicated; Aldactone discontinued. 4. Hold his statin given elevated LFTs. Will plan to resume as outpatient once LFTs are normalized. 5. Patient to follow up in Cardiology Clinic as an outpatient. Subjective Date/time seen: 08/19/22 13:51 Interval history: Given elevated LFTs, RUQ US was done which showed cholelithiasis at the gallbladder neck with gallbladder wall thickening and trace pericholecystic fluid. Findings suspicious for acute cholecystitis. General Surgery consulted, and given no abdominal symptoms and able to tolerate food without any issues, they recommended to treat conservatively with low fat diet and lifestyle modifications. Patient to follow up with them as an outpatient. Urology consulted as well for urinary retention - they recommended to restart Tamsulosin and start Finasteride, salas was placed, and recommended to do voiding trial prior to discharge. Patient remains chest pain free and otherwise denies any symptoms. Passed his voiding trial today. Ready to go home. Review of Systems Review of Systems: All systems reviewed & are unremarkable except as noted in HPI and below (subjective.) Exam Const: General: comfortable and no acute distress Neck: Neck: no JVD Resp: Effort & Inspection: normal respiratory effort Auscultation: clear to auscultation bilaterally Cardio: Rate: regular rate Rhythm: regular rhythm GI: GI Palp: Yes Soft to palpation and No Tenderness to palpation present (GI) Skin: General skin exam: normal color Neuro: Speech: normal speech Psych: Mental Status: mental status grossly normal Objective Data Vital Signs Vital Signs: Vital Signs - 24 hr 08/19/22 09:15 08/18/22 16:00 08/18/22 16:00 Temperature 37.1 C Pulse Rate 91 80 80 Respiratory Rate 14 Blood Pressure 111/84 Pulse Oximetry 95 Oxygen Delivery 08/18/22 20:00 08/18/22 20:00 08/18/22 23:38 Temperature Pulse Rate 84 85 85 Respiratory Rate 16 Blood Pressure Pulse Oximetry 98 Oxygen Delivery Room Air 08/18/22 23:44 08/19/22 04:00 08/19/22 08:00 Temperature 37.7 C H 37.9 C H Pulse Rate 85 76 84 Respiratory Rate 14 21 H Blood Pressure 121/82 114/73 Pulse Oximetry 98 100 Oxygen Delivery 08/19/22 08:00 08/19/22 08:00 08/19/22 12:00 Temperature Pulse Rate 80 83 Respiratory Rate Blood Pressure Pulse Oximetry Oxygen Delivery Room Air Intake/Output Intake/Output: Intake & Output 08/16/22 08/17/22 08/18/22 08/19/22 23:59 23:59 23:59 23:59 Intake Total 520 3715 1190 Output Total 200 3250 2450 Balance 320 603 -9657 Meds/Results Medications: Active Medications Generic Name Dose Route Start La
--- NOTE | 2022-08-19 14:17 | PM.DS ---
DS: Admitting Diagnosis Discharge Date 08/19/2022 Admitting Diagnosis STEMI DS: Discharge Diagnosis Discharge Diagnosis (1) ST elevation (STEMI) myocardial infarction: Code(s): I21.3 - ST elevation (STEMI) myocardial infarction of unspecified site Status: Acute (2) Hypertension: Code(s): I10 - Essential (primary) hypertension Status: Acute (3) Hypercholesterolemia: Code(s): E78.00 - Pure hypercholesterolemia, unspecified Status: Acute (4) Elevated LFTs: Code(s): R79.89 - Other specified abnormal findings of blood chemistry Status: Acute (5) BPH (benign prostatic hyperplasia): Code(s): N40.0 - Benign prostatic hyperplasia without lower urinary tract symptoms Status: Acute (6) Cholelithiasis with cholecystitis: Code(s): K80.10 - Calculus of gallbladder with chronic cholecystitis without obstruction Status: Acute Plan 1. Appreciate Urology recommendations. Continue Tamsulosin and Finasteride upon discharge. Patient passed his voiding trial without any issues. 2. Appreciate General Surgery recommendations. Will have patient follow up with them as an outpatient. 3. For his acute coronary syndrome, will have patient on DAPT (ASA + Plavix) for 1 year as per guidelines. Continue beta edmond and ARB. Echo showed LVEF 45-50%, therefore, Aldactone not indicated; Aldactone discontinued. 4. Hold his statin given elevated LFTs. Will plan to resume as outpatient once LFTs are normalized. 5. Patient to follow up in Cardiology Clinic as an outpatient. DS: Summary Hospital Course Hospital Course: 08/17/2022 - presented with chest pain and EKG in the field that demonstrated inferior ST elevation. He was taken to the cardiac track laborer and was found to have no angiographic abnormalities. Therefore, the presumptive diagnosis was acute myocardial infarction mediated by vasospasm. He was treated as such with nitro, beta edmond. Did not have any recurrence of chest pain. 08/18/2022 - Noted to have elevated LFT's, abdominal u/s was ordered that showed evidence of cholecystitis. General surgery was consulted and recommended conservative medical management. 08/19/2022 - No acute events. Tolerating medical therapy. Appropriate for discharge home today with instructions for him to follow up with his usual line repairer tower at [facility] within two weeks. Time Spent with Patient Time attestation: Total time spent providing and/or coordinating discharge services: Exam Const: General: comfortable and no acute distress Other: Well-developed well-nourished white male he is no longer experiencing any chest pain is be being prepared for emergency angiography. Appears to be comfort HENMT: Mouth: Yes moist mucous membranes Eyes: General: appearance normal, both eyes and all related structures Sclera: sclerae normal Pupils: Equal, round and reactive pupils present Neck: Neck: supple and no JVD Resp: Effort & Inspection: normal respiratory effort Auscultation: clear to auscultation bilaterally Cardio: Rate: regular rate Rhythm: regular rhythm Heart sounds: no murmurs Other: no murmur no gallop GI: Auscultation: normal bowel sounds Skin: General skin exam: normal color Neuro: Cranial nerves: Yes Equal, round and reactive pupils present Speech: normal speech Other: alert and oriented x3 Extrem: General: normal to inspection Psych: Mental Status: mental status grossly normal DS: Data Data Completed and Pending Labs on day of discharge: Labs from last 24 hours 08/19/22 08/19/22 04:24 04:24 WBC 7.2 RBC 4.55 L Hgb 12.9 L Hct 39.5 L MCV 86.8 MCH 28.4 MCHC 32.7 RDW 13.2 Plt Count 219 MPV 10.2 Sodium 137 Potassium 4.0 Chloride 103 Carbon Dioxide 25 Anion Gap 9 BUN 16 Creatinine 1.10 Estim Creat Clear Calc 69 Estimated GFR > 60 Glucose 118 H Calcium 8.6 Total Bilirubin 0.5 AST 194 H ALT 218
== END 2022-08-19 17:30 | disposition home or self-care (01) | DRG 281 ==
LOC: ANHED 04:33 → ANHICU 04:40
PROVIDERS: Internal Medicine; Nurse Practitioner Family; Admitting Provider Specialist; Emergency Provider Emergency Medicine; PCP Family Medicine; Visit Provider Nurse Practitioner
PROC: 4A023N7 Measurement of Cardiac Sampling and Pressure, Left Heart, Percutaneous Approach (ICD-10-PCS; CPT 93452; principal; 2022-08-17 04:25)
PROC: 4A023N7 Measurement of Cardiac Sampling and Pressure, Left Heart, Percutaneous Approach (ICD-10-PCS; 2022-08-17 04:25)
DX: I21.3 ST elevation (STEMI) myocardial infarction of unspecified site (principal); K80.00 Calculus of gallbladder with acute cholecystitis without obstruction; N13.30 Unspecified hydronephrosis; N40.1 Benign prostatic hyperplasia with lower urinary tract symptoms; R33.8 Other retention of urine; I10 Essential (primary) hypertension; E78.00 Pure hypercholesterolemia, unspecified; I95.9 Hypotension, unspecified; R79.89 Other specified abnormal findings of blood chemistry; Z87.442 Personal history of urinary calculi; Q63.1 Lobulated, fused and horseshoe kidney
CPT/HCPCS: 36415; 71045; 76705; 76775; 80053; 80061; 80074; 81001; 83735; 84100; 84484; 85025; 85027; 85610; 85730; 86850; 86900; 86901; 87086; 93005; 93306; 93458; 96374; 96375; 99291; A9270; C1760; C1887; C1894; G0269; J0153; J0282; J0696; J1644; J2250; J2270; J3010; J3480; J7030; J7040